=== PATIENT | male | born 1995 | race Caucasian/White ===

== ENCOUNTER 2016-06-27 19:57 | Emergency (ER) | payer OTHER ==
[~2016-06-27] VITALS: Ht 177.8 cm; Wt 90.7 kg
[2016-06-27 20:08] VITALS: BP 131/99
--- NOTE | 2016-06-27 21:16 | NUR ---
PT TAKEN TO BED 7
--- NOTE | 2016-06-27 21:30 | NUR ---
21Y/M PATIENT PRESENTS TO ED WITH LT. EAR PAIN X 1 HR . PT STATES HAVING LT. EAR PAIN WITH NO FEVER . DENIES N/V/D; SKIN IS PINK/WARM/DRY; AAOX4 WITH EVEN AND STEADY GAIT; LUNGS CLEAR BL; HR EVEN AND REGULAR; PT DENIES ANY FEVER, CP, SOB, OR COUGH AT THIS TIME; PATIENT STATES PAIN OF 4/10 AT THIS TIME; VSS; PATIENT POSITIONED FOR COMFORT; HOB ELEVATED; BEDRAILS UP X2; BED DOWN. ER MD MADE AWARE OF PT STATUS.
--- NOTE | 2016-06-27 21:40 | NUR ---
Patient being evaluated by KYLIE at bedside.
[2016-06-27 22:06] VITALS: BP 125/81
--- NOTE | 2016-06-27 22:08 | NUR ---
Patient discharged with v/s stable. Written and verbal after care instructions given and explained. Patient alert, oriented and verbalized understanding of instructions. Ambulatory with steady gait. All questions addressed prior to discharge. ID band removed. Patient advised to follow up with PMD. Rx of AMOXICILLIN 500 MG, MOTRIN 600 MG, SUDAFED 12 MG given. Patient educated on indication of medication including possible reaction and side effects. Opportunity to ask questions provided and answered.
== END 2016-06-27 22:08 | disposition home or self-care (01) ==
LOC: MED 19:57
DX: H66.92 Otitis media, unspecified, left ear (principal); J02.9 Acute pharyngitis, unspecified; J06.9 Acute upper respiratory infection, unspecified; J45.909 Unspecified asthma, uncomplicated